=== PATIENT | male | born 1990 | race Caucasian/White ===

== ENCOUNTER 2025-02-10 14:50 | Outpatient (AMB) | payer BC, SELFPAY ==
--- NOTE | 2025-02-10 15:24 | MHC.PC.OV ---
Vital Signs 02/10/25 15:31 Height 6 ft 1 in Weight 249 lb BMI 32.8 BP 120/60 Blood Pressure Location Lt brachial Position Sitting Respiration 16 Pulse 72 Pulse Source Pulse Oximeter Temp 97.9 F Temp Source Oral Pulse Oximetry (%) 97 Oxygen Delivery Method Room Air Intake Visit Reasons: DIRECTOR MEDICAL WRITING - Annual PE Intake Note: patient is scheduled for police detective visit to establish care Material Distributor Required: No Allergies No Known Allergies Allergy (Verified 02/10/25 15:25) Medication List - Last Reconciled 02/10/25 by Ricky Maradiaga MD No Known Home Meds Dental Screening Did you have a dental visit in the last 12 months?: No Did you have a dental problem in the last 6 months where you did not have access to dental care?: No Was dental information given to patient?: No HPI DIRECTOR MEDICAL WRITING - Annual PE HPI Details New Patient? ?? Prior PCP:? [facility] Last office visit/CPE:? 2 yrs Acute issue(s):? Est care Anxiety Difficulty Concentrating PHQ+ PMHx:? difficulty concetrating, Pyloric stenosis. [facility] Bite R Thumb. SurgHx:?Pyloric stenosis FHx:? Mom: Abbie Gehrigs Disease. Dad: Obesity. Sister: Isaias rabago. SocHx:?Nonsmoker, EtOH 3x a month 3-5 drinks. MJ about 3x a week. No drugs PFSH Family History (Updated 02/10/25 @ 15:37 by DAWOOD Navarro) Mother ALS (amyotrophic lateral sclerosis) Social History Housing: Apartment Patient Tobacco Use Status: Never used Tobacco e-Cigarette/Vaping Use: Never Used Second Hand Smoke Exposure: No service: No Current occupational status: employed Current occupation: warehouse distribution manager Current occupational exposures/hazards: No Cognitive needs: No Hearing needs: No Vision needs: Yes Questionnaire PHQ-9 Over the last 2 weeks, how often have you been bothered by any of the following problems? 1. Little interest or pleasure in doing things: several days 2. Feeling down, depressed, or hopeless: several days 3. Trouble falling or staying asleep, or sleeping too much: more than half the days 4. Feeling tired or having little energy: not at all 5. Poor appetite or overeating: not at all 6. Feeling bad about yourself - or that you are a failure or have let yourself or your family down: several days 7. Trouble concentrating on things, such as reading the newspaper or watching television: more than half the days 8. Moving or speaking so slowly that other people could have noticed. Or the opposite - being so fidgety or restless that you have been moving around a lot more than usual: more than half the days 9. Thoughts that you would be better off or of hurting yourself in some way: not at all Total score: 9 Depression Screening Interpretation: Positive Depression Screening Done: Yes 96240 - PHQ-9 Billing: Yes Source: Developed by Drs. Kike Mo, Courtney Sosa, Rj Hamilton and colleagues, with an educational drew from [employer]. Thrive Questionnaire Date Thrive assessed: 02/10/25 I am a: Patient What is your living situation today?: I have a steady place to live Within the past 12 months, did the food you bought not last and you didn't have the money to get more?: Never true Within the past 12 months, did you worry whether your food would run out before you got money to buy more?: Never true Do you have trouble paying for medicines?: No Do you have trouble getting transportation to medical appointments?: No Do you have trouble paying your heating and electricity bill?: No Do you have trouble taking care of your child, family member or friend?: No Do you have trouble with day-to-day activities such as bathing, preparing meals, shopping, managing finances, etc.?: No Are you currently unemployed and looking for a job?: No Are you interested in more education?: No Please select the resources that you would like help with: None Currently or been in a relationship where the following occur: No concerns reported THRIVE Score: 0 AUDIT C Alcohol Use Questionnaire (AUDIT-C) 1. How often do you have a drink containing alcohol?: 2-4 times a month 2. How many drinks containing alcohol do you have on a typical day when you are drinking?: 3 or 4 3. How often do you have six or more drinks on one occasion?: Less than monthly Total Score: 4 Score Reviewed/Action Taken: Yes CARLEY-7 AMB Questionnaire CARLEY-7 Date CARLEY - 7 assessed: 02/10/25 Feeling nervous, anxious, or on edge: 1 = Several days Not being able to stop or control worryin = Several days Worrying too much about different things: 1 = Several days Trouble relaxin = Several days Being so restless that it is hard to sit still: 1 = Several days Becoming easily annoyed or irritable: 1 = Several days Feeling afraid as if something awful might happen: 1 = Several days Total CARLEY-7 score (0-4 normal; 5-9 mild; 10-14 moderate; 15-21 severe): 7 Source: Developed by Drs. Kike Mo, Courtney Sosa, Rj Hamilton and colleagues, with an educational drew from [employer]. CARLEY-7 Assessment Billing CARLEY-7 Assessment Tool: CARLEY-7 Assessment 15397 Review of Systems Const Denies chills, Denies fatigue, Denies fever(s), Denies headache(s) and Denies weakness ENT Denies dizziness and Denies headache(s) Card Denies chest pain, Denies lightheadedness, Denies dyspnea and Denies other (Palpitations) Resp Denies cough, Denies dyspnea, Denies wheezing and Denies other ( shortness of breath) Musc Denies numbness and Denies tingling Neuro Denies dizziness, Denies headache(s), Denies numbness, Denies tingling, Denies paresthesias and Denies weakness Psych Denies anxiety and Denies depression Endo Denies fatigue Aller/Immun Denies wheezing Physical exam (Primary Care) Vital Signs: Last Vital Signs Temp 97.9 F 02/10/25 15:31 Pulse 72 02/10/25 15:31 Resp 16 02/10/25 15:31 BP 120/60 02/10/25 15:31 Pulse Ox 97 02/10/25 15:31 Oxygen Delivery Method Room Air 02/10/25 15:31 BMI result Body Mass Index 32.8 Tobacco/Smoking Status: Tobacco use Status Patient Tobacco Use Status Never used Tobacco 02/10/25 15:29 e-Cigarette/Vaping Use Never Used 02/10/25 15:29 PHQ-9: PHQ-9 Score PHQ-9: Total score 9 02/10/25 16:00 Depression Screening Interpretation: Positive Thrive Assessment: Date of Thrive Assessment Date Thrive assessed 02/10/25 02/10/25 15:29 Currently or been in a relationship where the following occur: No concerns reported Const General: no acute distress and well developed Nutritional Appearance: well nourished Orientation/consciousness: patient oriented x3 HENMT Head: Yes normocephalic and Yes atraumatic Eyes General: appearance normal, both eyes and all related structures Pupils: Equal, round and reactive pupils present EOM: EOMs intact bilaterally Resp Effort & Inspection: normal respiratory effort Auscultation: clear to auscultation bilaterally Cardio Rate: regular rate Rhythm: regular rhythm Heart sounds: S1 normal heart sound present, S2 normal heart sound present, no gallops, no murmurs and no rubs Neuro General: patient oriented x3 and gait normal Cranial nerves: Yes Equal, round and reactive pupils present Psych Affect: normal affect Coding Level of Care Code New Pt Level 3 (17825) Diagnoses Difficulty concentrating R41.840 Anxiety with depression F41.8 Laboratory exam ordered as part of routine general medical examination Z00.00 Additional Codes CARLEY-7 Assessment Billing - CARLEY-7 Assessment Tool: CARLEY-7 Assessment 65638 ([id number]) PHQ-9 - 55401 - PHQ-9 Billing: Yes ([id number]) Assessment & Plan Assessment & Plan (1) Difficulty concentrating: Code(s): R41.840 - Attention and concentration deficit Category: Medical Plan: Patient?states?that?he?has?a?history?ADD/ADHD.??I?records?yet. He?also?notes?anxiety?and?history?of?recent?stressors?this/trauma. Unclear?if complaints?of?difficulty?concentrating?are?too?new?stressors?or ADD?or?other. [place] [place]. (2) Anxiety with depression: Code(s): F41.8 - Other specified anxiety disorders Category: Medical Plan: As?above (3) Laboratory exam ordered as part of routine general medical examination: Code(s): Z00.00 - Encounter for general adult medical examination without abnormal findings Category: Medical Plan: Check?labs Orders: Orders Lipid Panel Today Z00.00 - Encounter for general adult medical examination without abnormal findings TSH reflex Free T4 Today Z00.00 - Encounter for general adult medical examination without abnormal findings HIV Ab/Ag Today Z11.3 - Encounter for screening for infections with a predominantly sexual mode of transmission Hepatitis B,C Profile Today Z11.3 - Encounter for screening for infections with a predominantly sexual mode of transmission Syphilis Screen Today Z11.3 - Encounter for screening for infections with a predominantly sexual mode of transmission Comprehensive [place]. Panel Fast Today Z00.00 - Encounter for general adult medical examination without abnormal findings Microalbumin, Random (w Creat) Today I10 - Essential (primary) hypertension UA CC w/rflx Micro + Cult Today Z00.00 - Encounter for general adult medical examination without abnormal findings CT NG by PCR Today Z11.3 - Encounter for screening for infections with a predominantly sexual mode of transmission Referrals Psychiatry Outpatient Consultation Service F41.8 - Other specified anxiety disorders, R41.840 - Attention and concentration deficit
[2025-02-10 15:31] VITALS: BP 120/60; PULSE 72; RESP 16; TEMP 36.6; O2SAT 97; BMI 32.8
--- OUTSIDE RECORDS SUMMARY | 2025-02-10 18:05 | XMS_ITS | Encounter Summary ---
Author Organization [facility] Address [address] [place] [address] Phone Care Team Providers Care Dry Wall Installer Name Role Phone Guanaco Reed MD Primary Care Provider [phone] Encounter Details Date Type Department Care Team (Late st Contact Info) Description 06/14/2017 Conversion Encounter [facility] [place] [address] [place] [address] Social History Tobacco Use Types Packs/Day Years Used Date Smoking Tobacco: Never Assessed Sex and Gender Information Value Date Recorded Sex Assigned at Not on file Legal Sex Male 4:30 PM EDT Gender Identity Not on file Sexual Orientation Not on file documented as of this encounter Plan of Treatment Not on file documented as of this encounter Visit Diagnoses Not on filedocumented in this encounter Care Teams Dry Wall Installer Relationship Specialty Start Date End Date Guanaco Reed MD [address] [place] [address] PCP - General 06/08/17 02/04/23 documented as of this encounter
--- OUTSIDE RECORDS SUMMARY | 2025-02-10 18:05 | XMS_ITS | Clinical Summary ---
Author Organization [facility] Address [address] [place] [address] Phone Care Team Providers Care Phytopathology Teacher Name Role Phone Unavailable Primary Care Provider Unavailabl e Immunizations Immunization Administration Dates Next Due DTP 11/10/1993, 2,03/15/1992,01/29 DTaP 5 07/02/1997 H1N1 08/16/2009 Hep B, ped/adol 11/10/1993,03/04/1992,01/14/1992 Hib (PRP-T) 05/06/1993, 2,03/04/1992,01/13 Influenza, injectable, trivalent 08/16/2009 Influenza, intranasal, trivalent 06/27/2010 MMR 07/02/1997,05/06/1993 Meningococcal Polysaccharide 07/09/2007 OPV 07/02/1997, 4,03/04/1992,01/13 Td (adult) (MBL), 2 Lf tetan us toxoid, PF, adsorbed 04/22/2004 Tdap 07/09/2007 Social History Tobacco Use Types Packs/Day Years Used Date Smoking Tobacco: Never Assessed Sex and Gender Information Value Date Recorded Sex Assigned at Not on file Legal Sex Male 4:30 PM EDT Gender Identity Not on file Sexual Orientation Not on file Last Filed Vital Signs Vital Sign Reading Time Taken Comments Blood Pressure - - Pulse - - Temperature 36 ??C (96.8 ??F) 02/28/2010 12:00 AM EDT Respiratory Rate - - Oxygen Saturation - - Inhaled Oxygen Concentration - - Weight 88.9 kg (196 lb) 06/27/2010 12:00 AM EDT Height 185.4 cm (6' 1 ) 06/27/2010 12:00 AM EDT Body Mass Index 25.86 06/27/2010 12:00 AM EDT Plan of Treatment Health Maintenance Due Date Last Done Comments Varicella Vaccines (1 of 2 - 13+ 2-dose series) 07/25/2010 DTaP,Tdap,and Td Vaccines (7 - Td or Tdap) 07/09/2017 07/09/2007, 04/22/2004, 07/02/1997, Additional history exists Influenza Vaccines (#1) 2024 06/27/2010, 08/16 COVID-19 Vaccine ( season) 2024 HIB Vaccines Completed 05/06/1993, 05/1992, 03/04/1992, Additional history exists Hepatitis B Vaccines Completed 11/10/1993, 03/04/1992, 01/14/1992 IPV Vaccines Completed 07/02/1997, 10/29, 03/04/1992, Additional history exists MMR Vaccines Completed 07/02/1997, 05/06/1993 HPV Vaccines Aged Out No longer eligi ble based on patient's age to complete this topic Hepatitis A Vaccines Aged Out No long er eligible based on patient's age to complete this topic Men B Vaccine Aged Out No longer elig ible based on patient's age to complete this topic Meningococcal Vaccine Aged Out No marv karen eligible based on patient's age to complete this topic Pneumococcal Vaccine Aged Out No long er eligible based on patient's age to complete this topic
== END 2025-02-10 16:03 | disposition home or self-care (01) ==
LOC: HO.HMCFM 14:50
PROVIDERS: PCP Family Medicine; Visit Provider Family Medicine
DX: R41.840 Attention and concentration deficit (principal); F41.8 Other specified anxiety disorders; Z00.00 Encounter for general adult medical examination without abnormal findings

== ENCOUNTER → 2025-02-10 14:50 | Outpatient (BNVA) | payer BC, SELFPAY | PROVIDERS: PCP Family Medicine; Visit Provider Family Medicine | DX: Z00.00 Encounter for general adult medical examination without abnormal findings (principal); R41.840 Attention and concentration deficit; F41.8 Other specified anxiety disorders | CPT/HCPCS: 96127 ==

== ENCOUNTER 2025-02-16 16:27 | Outpatient (REF) | payer BC, SELFPAY ==
--- OUTSIDE RECORDS SUMMARY | 2025-02-16 16:29 | XMS_ITS | Encounter Summary ---
Author Organization [facility] Address [address] [place] [address] Phone Care Team Providers Care Clamp Remover Name Role Phone Guanaoc Reed MD Primary Care Provider Encounter Details Date Type Department Care Team (Late st Contact Info) Description 06/14/2017 Conversion Encounter [facility] [place] [address] [place] [address] Social History Tobacco Use Types Packs/Day Years [...] on filedocumented in this encounter Care Teams Clamp Remover Relationship Specialty Start Date End Date Guanaco Reed MD [address] [place] [address] PCP - General 06/08/17 02/04/23 documented as of this encounter
--- OUTSIDE RECORDS SUMMARY | 2025-02-16 16:29 | XMS_ITS | Clinical Summary ---
Author Organization [facility] Address [address] [place] [address] Phone Care Team Providers Care Seismic Plotter Name Role Phone Unavailable Primary Care Provider [...]
== END 2025-02-16 16:28 | disposition home or self-care (01) ==
LOC: HO.LAB 16:27
PROVIDERS: Visit Provider Family Medicine
DX: Z13.89 Encounter for screening for other disorder (principal)

== ENCOUNTER 2025-08-12 08:38 | Outpatient (AMB) | payer BC, SELFPAY ==
--- NOTE | 2025-08-12 08:49 | A.OFFPC_ITS ---
Vital Signs 08/12/25 08:53 Height 6 ft 1 in Weight 157 lb 8 oz BMI 20.8 BP 132/73 Blood Pressure Location Rt brachial Position Sitting Respiration 16 Pulse 73 Pulse Source Pulse Oximeter Temp 97.5 F Temp Source Oral Pulse Oximetry (%) 100 Oxygen Delivery Method Room Air Intake Visit Reasons: FMLA PW Intake Note: patient here for FMLA paper work and would like an excuse note for today Instructor Of Nursing Required: No Allergies No Known Allergies Allergy (Verified 08/12/25 08:52) Medication List - Last Reconciled 08/12/25 by Ricky Maradiaga MD escitalopram oxalate 10 mg PO DAILY Tobacco use date assessed: 08/12/25 Dental Screening Dental Screen Date: 08/12/25 Did you have a dental visit in the last 12 months?: No Did you have a dental problem in the last 6 months where you did not have access to dental care?: No Was dental information given to patient?: Patient has dentist HPI FMLA PW HPI Details 34 y/o male presents for FMLA paperwork. Reports anxiety/panic attacks. Has seen his med provider for his escitalopram twice. Does have a therapist who sees regularly and has future appointments. PHQ-9 16 today. Reports intermittent abd. pain, IBS symptoms. [facility] Family History (Updated 02/10/25 @ 15:37 by Luis Beasley [facility]) Mother ALS (amyotrophic lateral sclerosis) Social History Housing: Apartment Patient Tobacco Use Status: Never used Tobacco e-Cigarette/Vaping Use: Never Used Second Hand Smoke Exposure: No service: No Current occupational status: employed Current occupation: warehouse administrator Current occupational exposures/hazards: No Cognitive needs: No Hearing needs: No Vision needs: Yes Questionnaire PHQ-9 Over the last 2 weeks, how often have you been bothered by any of the following problems? 1. Little interest or pleasure in doing things: more than half the days 2. Feeling down, depressed, or hopeless: more than half the days 3. Trouble falling or staying asleep, or sleeping too much: nearly every day 4. Feeling tired or having little energy: several days 5. Poor appetite or overeating: several days 6. Feeling bad about yourself - or that you are a failure or have let yourself or your family down: more than half the days 7. Trouble concentrating on things, such as reading the newspaper or watching television: more than half the days 8. Moving or speaking so slowly that other people could have noticed. Or the opposite - being so fidgety or restless that you have been moving around a lot more than usual: more than half the days 9. Thoughts that you would be better off or of hurting yourself in some way: several days Total score: 16 Source: Developed by Drs. Kike Mo, Courtney Sosa, Rj Hamilton and colleagues, with an educational drew from [employer]. Thrive Questionnaire Date Thrive assessed: 02/04/25 I am a: Patient What is your living situation today?: I have a steady place to live Within the past 12 months, did the food you bought not last and you didn't have the money to get more?: Never true Within the past 12 months, did you worry whether your food would run out before you got money to buy more?: Never true Do you have trouble paying for medicines?: No Do you have trouble getting transportation to medical appointments?: No Do you have trouble paying your heating and electricity bill?: No Do you have trouble taking care of your child, family member or friend?: No Do you have trouble with day-to-day activities such as bathing, preparing meals, shopping, managing finances, etc.?: No Are you currently unemployed and looking for a job?: No Are you interested in more education?: No Please select the resources that you would like help with: None Currently or been in a relationship where the following occur: No concerns reported THRIVE Score: 0 CARLEY-7 AMB Questionnaire CARLEY-7 Date CARLEY - 7 assessed: 02/10/25 Source: Developed by Drs. Kike Mo, Courtney Sosa, Rj Hamilton and colleagues, with an educational drew from [employer]. Review of Systems Const Denies chills, Denies fatigue, Denies fever(s), Denies headache(s) and Denies weakness ENT Denies dizziness and Denies headache(s) Card Denies dyspnea Resp Denies cough, Denies dyspnea, Denies wheezing and Denies other (shortness of br eath) Musc Denies numbness and Denies tingling Neuro Denies dizziness, Denies headache(s), Denies numbness, Denies tingling and Denies weakness Psych Reports anxiety and Reports depression Endo Denies fatigue Aller/Immun Denies wheezing Physical exam (Primary Care) Vital Signs: Last Vital Signs Temp 97.5 F 08/12/25 08:53 Pulse 73 08/12/25 08:53 Resp 16 08/12/25 08:53 BP 132/73 08/12/25 08:53 Pulse Ox 100 08/12/25 08:53 Oxygen Delivery Method Room Air 08/12/25 08:53 BMI result Body Mass Index 20.8 Tobacco/Smoking Status: Tobacco use Status Tobacco use date assessed 08/12/25 08/12/25 08:57 Patient Tobacco Use Status Never used Tobacco 08/12/25 08:51 e-Cigarette/Vaping Use Never Used 08/12/25 08:51 PHQ-9: PHQ-9 Score PHQ-9: Total score 16 08/12/25 10:04 Thrive Assessment: Date of Thrive Assessment Date Thrive assessed 02/04/25 08/12/25 08:51 Currently or been in a relationship where the following occur: No concerns reported Const General: well developed; No acute distress Nutritional Appearance: well nourished Orientation/consciousness: patient oriented x3 HENMT Head: Yes normocephalic and Yes atraumatic Eyes General: appearance normal, both eyes and all related structures Pupils: Equal, round and reactive pupils present EOM: EOMs intact bilaterally Resp Effort & Inspection: normal respiratory effort Neuro General: patient oriented x3 and gait normal Cranial nerves: Yes Equal, round and reactive pupils present Psych Affect: normal affect Coding Level of Care Code Tele Est Pt Level 5 (03159) Diagnoses Anxiety with depression F41.8 Abdominal pain R10.9 PTSD (post-traumatic stress disorder) F43.10 IBS (irritable bowel syndrome) K58.9 Panic attacks F41.0 Assessment & Plan Assessment & Plan (1) Anxiety with depression: Code(s): F41.8 - Other specified anxiety disorders Category: Medical (2) Abdominal pain: Code(s): R10.9 - Unspecified abdominal pain Category: Medical (3) PTSD (post-traumatic stress disorder): Code(s): F43.10 - Post-traumatic stress disorder, unspecified Category: Medical (4) IBS (irritable bowel syndrome): Code(s): K58.9 - Irritable bowel syndrome, unspecified Category: Medical (5) Panic attacks: Code(s): F41.0 - Panic disorder [episodic paroxysmal anxiety] Category: Medical Plan Patient with a history of anxiety depression and PTSD presents with worsening symptoms and panic attacks. Also notes IBS symptoms He has had a therapist since the beginning of the year. He is followed regularly. He has seen a psych med provider who started him on escitalopram. I recommended he follow-up for medication adjustments as needed. Recommend a 3 month continuous leave of absence. He will continue the above treatments. Also recommended exercise regimen. For IBS symptoms, recommended increasing hydration and will give him a script for FiberCon. Can discuss additional treatments at his next visit if he is needing further intervention. Will re-evaluate him in 6 weeks and also prior to expected return in mid October. [facility] paperwork filled out with start date 08/01/2025 through 11/15/2025. Anticipated date of return 11/16/2025. Will also evaluate for readiness to return to work at that time. May need part-time or intermittent leave. Medications: New calcium polycarbophil (FiberCon) 625 mg PO DAILY 30 tabs 2RF 30 days
[2025-08-12 08:53] VITALS: BP 132/73; PULSE 73; RESP 16; TEMP 36.4; O2SAT 100; BMI 20.8
--- OUTSIDE RECORDS SUMMARY | 2025-08-12 09:09 | XMS_ITS | Encounter Summary ---
Author Organization [facility] Address [address] [place] [address] Phone Care Team Providers Care Backbreaker Name Role Phone Guanaco Reed MD Primary Care Provider [phone] Encounter Details Date Type Department Care Team (Late st Contact Info) Description 06/14/2017 Conversion Encounter [facility] [place] [address] [place] [address] Social History Tobacco Use Types Packs/Day Years [...] on filedocumented in this encounter Care Teams Backbreaker Relationship Specialty Start Date End Date Guanaco Reed MD [address] [place] [address] PCP - General 06/08/17 02/04/23 documented as of this encounter
--- OUTSIDE RECORDS SUMMARY | 2025-08-12 09:09 | XMS_ITS | Clinical Summary ---
Author Organization [facility] Address [address] [place] [address] Phone Care Team Providers Care Cow Trimmer Name Role Phone Unavailable Primary Care Provider [...] - - Pulse - - Temperature 36 C (96.8 F) 02/28/2010 12:00 AM EDT Respiratory Rate - [...] 07/09/2017 07/09/2007, 04/22/2004, 07/02/1997, Additional history exists HPV Vaccines (1 - 3-dose SCDM series) 2018 Influenza Vaccines (#1) 2025 06/27/2010, 08/16 COVID-19 Vaccine ( season) 2025 HIB Vaccines Completed 05/06/1993, 05/1992, 03/04/1992, Additional history exists Hepatitis B Vaccines Completed 11/10/1993, 03/04/1992, 01/14/1992 IPV Vaccines Completed 07/02/1997, 10/29, 03/04/1992, Additional history exists MMR Vaccines Completed 07/02/1997, 05/06/1993 Hepatitis A Vaccines Aged Out No long [...]
== END 2025-08-12 10:22 | disposition home or self-care (01) ==
LOC: HO.HMCFM 08:39
PROVIDERS: PCP Family Medicine; Visit Provider Family Medicine
DX: R10.9 Unspecified abdominal pain (principal); F41.8 Other specified anxiety disorders; F43.10 Post-traumatic stress disorder, unspecified; K58.9 Irritable bowel syndrome, unspecified; F41.0 Panic disorder [episodic paroxysmal anxiety]